=== PATIENT | male | born 1930 | race Caucasian/White ===

== ENCOUNTER 2018-01-02 09:54 | Day surgery (SDC) | payer OTHER ==
[2017-12-30 14:24] LABS: BILIRUBIN,URINE NEGATIVE (NEGATIVE); BLOOD, URINE 2+ (NEGATIVE); CLARITY/URINE CLEAR (CLEAR); COLOR,URINE YELLOW (YELLOW); GLUCOSE,URINE NEGATIVE (NEGATIVE); KETONES,URINE NEGATIVE (NEGATIVE); LEUKOCYTE ESTERASE ,URINE NEGATIVE (NEGATIVE); NITRITE, URINE NEGATIVE (NEGATIVE); PROTEIN URINE NEGATIVE (NEGATIVE); UROBILINOGEN,URINE 0.2 (0.2-1.0)
[2017-12-30 14:29] LABS: BASOPHILS # (AUTO) 0.1 K/uL (0.0-0.2); BASOPHILS % (AUTO) 0.8 % (0.0-2.0); EOSINOPHILS # (AUTO) 0.3 K/uL (0.0-0.4); EOSINOPHILS % (AUTO) 4.4 % (0.0-4.0); HEMOGLOBIN 12.4 g/dL (14.0-18.0); LYMPHOCYTES # (AUTO) 1.5 K/uL (1.0-5.5); LYMPHOCYTES % (AUTO) 20.4 % (20.5-51.5); MEAN CORPUSCULAR HEMOGLOBIN 31 pg (27-31); MEAN CORPUSCULAR HGB CONC 34 % (32-36); MEAN CORPUSCULAR VOLUME 92 fL (79.0-98.0); MONOCYTES # (AUTO) 0.8 K/uL (0.0-1.0); MONOCYTES % (AUTO) 10.5 % (1.7-9.3); NEUTROPHILS # (AUTO) 4.5 K/uL (1.8-7.7); NEUTROPHILS % (AUTO) 63.9 % (40.0-70.0); PLATELET COUNT (AUTO) 179 K/uL (130-430); RED BLOOD CELL COUNT(AUTO) 4.03 MIL/uL (4.2-6.2); RED CELL DISTRIBUTION WIDTH 12.9 % (9.0-15.0); WHITE BLOOD COUNT (AUTO) 7.2 K/uL (4.8-10.8)
[2017-12-30 14:42] LABS: ANION GAP 11 (5-15); CHLORIDE 104 mmol/L (98-107); CREATININE 1.14 mg/dL (0.55-1.30); GLUCOSE 86 mg/dL (70-99); POTASSIUM 4.2 mmol/L (3.5-5.1); SODIUM SERUM 139 mmol/L (136-145); UREA NITROGEN, BLOOD 22 mg/dL (8-21)
[2017-12-30 14:44] LABS: INR 1.1 (0.80-1.20)
[2017-12-30 14:48] LABS: BACTERIA,URINE RARE /HPF (None Seen); MUCUS,URINE None Seen /LPF (None Seen); WBC,URINE 0-3 /HPF (0-3)
[~2018-01-02] VITALS: Ht 152.4 cm; Wt 93.0 kg
[~2018-01-02 09:54] MED LIST: CEFAZOLIN SOD 2 GM in D5W 50 ML IV ONE; DIGO250T78 PO; FENO135C PO; GABA-529 PO; HYDR-1189 PO; HYDR25TA4 PO; IRBE300T19 PO; OMEP20CA10 PO; ROSU5TAB PO; SITA100T11 PO; TOPXL100 PO
[2018-01-02] MEDS ORDERED: LR 1,000 ML IV SCH ×2 (13:04→13:59)
[2018-01-02] MEDS ORDERED: ROPIVACAINE 0.2% (NAROPIN) PF SOLUTION 100 ML BOTTLE ONE (13:05)
[2018-01-02] MEDS ORDERED: MORPHINE 4 MG/ML INJ. SYRINGE IVP PRN ×3 (13:15)
[2018-01-02] MEDS ORDERED: METOCLOPRAMIDE HCL 10 MG/2 ML VIAL IVP PRN (13:15)
[2018-01-02] MEDS ORDERED: KETOROLAC TROMETHAMINE 30 MG VIAL ONE (13:50)
[2018-01-02] MEDS ORDERED: MIDAZOLAM HCL 5 MG/ML VIAL (VERSED) IV ONE (13:50)
[2018-01-02] MEDS ORDERED: LR 1,000 ML IV.SOLN IV ONE (13:50)
[2018-01-02] MEDS ORDERED: GLYCOPYRROLATE 0.2 MG/ML VIAL ONE (13:50)
[2018-01-02] MEDS ORDERED: PROPOFOL 200MG/ 20ML VIAL (DIPRIVAN) IV ONE (13:50)
[2018-01-02] MEDS ORDERED: fentaNYL CITRATE 250 MCG/5 ML AMP ONE (13:50)
[2018-01-02] MEDS ORDERED: ONDANSETRON HCL 4 MG/2 ML VIAL ONE (13:50)
[2018-01-02] MEDS ORDERED: NEOSTIGMINE METHYLSULFATE 1 MG/ML, 10 ML VIAL ONE (13:50)
[2018-01-02] MEDS ORDERED: PHENYLEPHRINE HCL 0.25% NASAL 15 ML NASPR NS ONE (13:50)
[2018-01-02] MEDS ORDERED: NS IRRIG SOLN 1000 ML IR ONE (13:50)
[2018-01-02] MEDS ORDERED: ROCURONIUM BROMIDE 10 MG/ML (ZEMURON) ONE (13:50)
[2018-01-02] MEDS ORDERED: SEVOFLURANE 15 MIN GAS INH ONE (13:50)
[2018-01-02 14:20] VITALS: BP_SYST 136
[2018-01-02 14:40] VITALS: BP_SYST 145
[2018-01-02] MEDS ORDERED: DIPHENHYDRAMINE HCL 25 MG CAPSULE PO PRN (16:15)
[2018-01-02] MEDS ORDERED: HYDROcodone/ACETAMIN 10-325 MG TAB PO PRN (16:15)
[2018-01-02] MEDS ORDERED: HYDROcodone/ACETAMIN 5-325 MG TAB (NORCO/ VICODIN) PO PRN (16:15)
== END 2018-01-02 18:00 | disposition home or self-care (01) ==
LOC: SDS 09:54 → SMU 09:55 → SDS 18:00
PROVIDERS: ATTEND Orthopaedic Surgery
DX: M75.101 Unspecified rotator cuff tear or rupture of right shoulder, not specified as traumatic (principal); M19.011 Primary osteoarthritis, right shoulder; M75.41 Impingement syndrome of right shoulder; I11.0 Hypertensive heart disease with heart failure; I50.9 Heart failure, unspecified; E11.40 Type 2 diabetes mellitus with diabetic neuropathy, unspecified; Z79.01 Long term (current) use of anticoagulants; F11.90 Opioid use, unspecified, uncomplicated; F40.240 Claustrophobia; M48.07 Spinal stenosis, lumbosacral region
CPT/HCPCS: 23120; 23412; 36415; 71046; 80048; 81000; 82962; 85025; 85610; 85730; A4565; C1773; J0690; J1885; J2250; J2405; J2704; J2710; J2795; J3010; J3490; J7060; J7120; L3650